=== PATIENT | female | born 1945 | race Caucasian/White ===

== ENCOUNTER 2021-10-07 12:46 | Emergency (ER) | payer MEDICARE, OTHER ==
[~2021-10-07] VITALS: Ht 165.1 cm; Wt 81.2 kg
[2021-10-07] MEDS ORDERED: MACROBID 100 M100 MG PO (14:19)
== END 2021-10-07 14:34 | disposition home or self-care (01) ==
LOC: ED 12:46
DX: N39.0 Urinary tract infection, site not specified (principal); Z88.1 Allergy status to other antibiotic agents; Z88.2 Allergy status to sulfonamides; Z88.8 Allergy status to other drugs, medicaments and biological substances; Z91.041 Radiographic dye allergy status
CPT/HCPCS: 81001; 87088; 99283